=== PATIENT | male | born 1950 | race Caucasian/White ===

== ENCOUNTER 2017-08-15 08:27 | Emergency (ER) | payer OTHER ==
[~2017-08-15] VITALS: Ht 172.7 cm; Wt 85.5 kg
[2017-08-15 08:30] VITALS: BP 133/96; PULSE 94; TEMP 36.8; O2SAT 97; Ht 172.7 cm; Wt 85.5 kg
[2017-08-15] MEDS ORDERED: DOXYCYCLINE HYCLATE 100 MG CAP PO ONE (09:00)
--- NOTE | 2017-08-15 09:04 | EMERGENCY ROOM VISIT NOTE ---
History Report prepared by Sawyer: Latesha Hoover Under the Supervision of: Dr. Tony Gonzalez D.O. First contact with patient: 08:45 Chief Complaint: BITE Stated Complaint: TICK BITE History of Present Illness The patient is a 66 year old male who presents to the Emergency Room with complaints of a resolved tick bite which he noticed today. He reports that this morning he found a tick bite on his left leg, noting that he removed the tick from the area. The patient states that he was worried that parts of the tick might remain inside the bite. He notes that he lives in [place] and is only visiting [place] for a week. Source of History: patient Onset: today Position: leg (left) Quality: other (tick bite) Timing: resolved Review of Systems See HPI for pertinent positives & negatives. A total of 10 systems reviewed and were otherwise negative. Past Medical & Surgical Medical Problems: (1) Hypertension Family History Patient reports no known family medical history. No pertinent family history. Social History Smoking Status: Never Smoker Smokeless Tobacco Use: No Alcohol Use: none Drug Use: none Marital Status: Housing Status: lives with family Occupation Status: employed Current/Historical Medications No Active Prescriptions or Reported Meds Allergies Coded Allergies: No Known Allergies (Unverified , 08/15/17) Physical Exam Vital Signs Date Time Temp Pulse Resp B/P (MAP) Pulse Ox O2 Delivery O2 Flow Rate FiO2 08/15/17 08:30 36.8 94 18 133/96 97 Room Air Physical Exam CONSTITUTIONAL/VITAL SIGNS: Reviewed / noted above. GENERAL: Non-toxic in appearance. INTEGUMENTARY: Warm, dry, and [place]. HEAD: Normocephalic. EYES: without scleral icterus or trauma. ENT/OROPHARYNX: clear and moist. LYMPHADENOPATHY/NECK: Is supple without lymphadenopathy or meningismus. RESPIRATORY: Lungs clear and equal. CARDIOVASCULAR: Regular rate and rhythm. GI/ABDOMEN: Soft and nontender. No organomegaly or pulsatile mass. No rebound or guarding. Normal bowel sounds. EXTREMITIES: Warm and well perfused. There is a small area in the left inner thigh about 2 cm in diameter that is slightly red likely related to recent tick bite. The tick is no longer present. BACK: No CVA tenderness. NEUROLOGICAL: Intact without focal deficits. PSYCHIATRIC: normal affect. MUSCULOSKELETAL: Normally developed with good muscle tone. Medical Decision & Procedures ED Course 0850: Previous medical records were reviewed. The patient was evaluated in room A11. A complete history and physical examination was performed. Discussed test findings and he verbalized complete understanding. The patient will be prepare for discharge. 0900: Doxycycline 200mg PO. Medical Decision Differential includes infection, insect bite, erythema migrans. This is a 66-year-old male who presents to the ED with a chief complaint of a tick bite to the left inner thigh. They were walking in a wooded area yesterday and he noticed the tick this morning. He removed it completely. There is a small red mary where the tick was previously present. There is no other findings. The patient was given doxycycline. He is from [place]. The patient was given information about Lyme disease. He was felt to be stable for discharge. Medication Reconcilliation Current Medication List: was personally reviewed by me Blood Pressure Screening Patient's blood pressure: Normal blood pressure Blood pressure disposition: Did not require urgent referral Impression Primary Impression: Tick bite Scribe Attestation The scribe's documentation has been prepared under my direction and personally reviewed by me in its entirety. I confirm that the note above accurately reflects all work, treatment, procedures, and medical decision making performed by me. Departure Information Dispostion Home / Self-Care Prescriptions No Active Prescriptions or Reported Meds Forms HOME CARE DOCUMENTATION FORM, IMPORTANT VISIT INFORMATION Patient Instructions ED Lyme Disease, My [facility] Additional Instructions You were given 200 mg of doxycycline today. This is to help prevent Lyme's disease. See your doctor if you develop any additional symptoms over the next 6 months. Additional symptoms of Lyme disease would include rashes, joint swelling or pain, fevers or other symptoms. If you develop symptoms of Lyme's disease you would need to be on 2-3 weeks of Doxycycline.
== END 2017-08-15 09:14 | disposition home or self-care (01) ==
LOC: C.EDB 08:30 → C.EDA 09:14
DX: S80.862A Insect bite (nonvenomous), left lower leg, initial encounter (principal); W57.XXXA Bitten or stung by nonvenomous insect and other nonvenomous arthropods, initial encounter; Y92.821 Forest as the place of occurrence of the external cause